=== PATIENT | male | born 1975 | race Caucasian/White ===

== ENCOUNTER 2021-07-05 07:18 | Day surgery (SDC) | payer BC ==
[~2021-07-05 07:18] MED LIST: Midazolam 1 MG/ML 2 ML SDV ONE; Propofol 200 MG/20 ML SDV ONE; fentaNYL 100 MCG/2 ML SDV ONE
[2021-07-05] MEDS ORDERED: Sodium Chloride 0.9% 1,000 ML IV SCH (08:00)
[2021-07-05] MEDS ORDERED: metroNIDAZOLE/Normal Saline 500 MG in Premix Bag 1 BAG IV ONE (08:00)
[2021-07-05] MEDS: Bupivacaine 0.5% 50 ML MDV ONE ×2 (08:24→08:49)
[2021-07-05] MEDS: Lidocaine 1% with EPINEPHrine 1:100,000 50 ML MDV ONE ×2 (08:25→08:49)
[2021-07-05] MEDS ORDERED: Propofol 200 MG/20 ML SDV ONE ×2 (08:55)
[2021-07-05] MEDS ORDERED: fentaNYL 100 MCG/2 ML SDV ONE (09:01)
[2021-07-05] MEDS ORDERED: Ketorolac 30 MG/ML SDV ONE ×2 (09:02→09:15)
[2021-07-05] MEDS ORDERED: Acetaminophen/HYDROcodone 325-5 MG Tab PO ONE (10:30)
[2021-07-05 10:31] VITALS: PULSE 105
[2021-07-05 10:48] VITALS: BP 138/76
--- NOTE | 2021-07-05 11:01 | OR ---
DATE OF PROCEDURE: 07/05/2021 SURGEON: Henry Alvarez MD PROCEDURES: 1. Transversus abdominis plane block bilaterally. 2. Rectus sheath blocks bilaterally. COMPLICATIONS: None. 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 RISKS: Risks, benefits, alternatives, and limitations including, but not limited to infection, bleeding, injury to abdominal structures were explained to the patient and wished to proceed. PROCEDURE IN DETAIL: The patient was placed in supine position. The right transversus plane was identified, 20% of the solution was injected under direct visualization using a 13 megahertz ultrasound probe. This was repeated on the other side, same manner, same fashion, same technique, in the same sequence using the same equipment. Bilateral rectus sheaths were also injected with 20% of the solution respectively also under direct visualization. During these 4 procedures at no time was the peritoneum entered blindly nor entered. No other abnormalities were noted. The patient tolerated the procedure well. Henry Alvarez MD /[id number]
--- NOTE | 2021-07-05 14:25 | OR ---
DATE OF PROCEDURE: 07/05/2021 SURGEON: Henry Alvarez MD PROCEDURE: Open inguinal hernia repair, right, incarcerated, non strangulated. FINDINGS: Incarcerated non strangulated hernia, right side, indirect. COMPLICATIONS: None. DIRECTOR AGENCY & STRATEGIC PARTNERSHIPS: None. ANESTHESIA: MAC. RISKS: Risks, benefits, alternatives, and limitations including, but not limited to infection, bleeding, injury to testicular vessels, resulting in testicular loss, seroma, hematoma, chronic wounds, chronic pain, neuropathies, and other risks not listed here were explained to the patient and he wished to proceed. PROCEDURE IN DETAIL: The patient was placed in supine position. The right groin was prepped and draped. This was marked by the patient preoperatively. A curvilinear incision was made approximately 5 cm in size after anesthetizing with lidocaine. A 15 blade was used to make this incision and electrocautery was used to carry it down to the external oblique aponeurosis. This was then opened with the back of a 15 blade and subsequently with the Metzenbaum scissors. The external oblique aponeurosis was then from the cord structure. The cord structures and associated hernia were surrounded with a Perkins drain. This indirect inguinal hernia was incarcerated, but able to be reduced. No evidence of strangulation or injury was noted. This was reduced back into the abdomen. An extra-large plug and patch system was secured into place using interrupted 0 Vicryl sutures in combination with absorbable tacking sutures. Careful attention was not to tack or suture the ilioinguinal nerve or other associated nerve structures. Once this was completed, the external oblique aponeurosis was closed with running 0 Vicryl suture. The mesh had been tacked and sutured approximately every 5 mm to 1 cm. Deeper layers were irrigated and closed with 3-0 Vicryl. Skin was closed with 4-0 Vicryl. Dermabond was applied. The patient tolerated the procedure well. Henry Alvarez MD /[id number]
== END 2021-07-05 11:05 | disposition home or self-care (01) ==
LOC: JP.SDS 07:18
PROVIDERS: ATTEND Surgery
DX: K40.30 Unilateral inguinal hernia, with obstruction, without gangrene, not specified as recurrent (principal); E78.00 Pure hypercholesterolemia, unspecified; E11.22 Type 2 diabetes mellitus with diabetic chronic kidney disease; I12.9 Hypertensive chronic kidney disease with stage 1 through stage 4 chronic kidney disease, or unspecified chronic kidney disease; N18.30 Chronic kidney disease, stage 3 unspecified; E66.9 Obesity, unspecified; Z68.26 Body mass index [BMI] 26.0-26.9, adult; Z88.0 Allergy status to penicillin; Z88.1 Allergy status to other antibiotic agents; Z87.891 Personal history of nicotine dependence; Z79.899 Other long term (current) drug therapy
CPT/HCPCS: 49507; 82947; A9270; C1781; J0171; J1100; J1885; J2250; J2704; J2795; J3010; J3490; J7030

== ENCOUNTER 2024-10-08 19:50 | Emergency (ER) | payer BC ==
[2024-10-08 20:30] LABS: BASOPHILS ABSOLUTE AUTO 0.09 K/uL (0.00-0.10); BASOPHILS PERCENT AUTO 0.8 % (0.1-1.3); EOSINOPHILS ABSOLUTE AUTO 0.35 K/uL (0.00-0.40); HEMATOCRIT 51.8 % (38.4-49.7); IMMATURE GRAN PERCENT AUTO 0.2 % (0.0-0.7); MEAN CORPUSCULAR HEMOGLOBIN 30.1 pg (31.6-35.5); MEAN CORPUSCULAR HGB CONC 35.1 g/dL (31.6-35.5); MEAN CORPUSCULAR VOLUME 85.6 fL (81.4-99.0); MONOCYTES ABSOLUTE AUTO 0.94 K/uL (0.20-0.90); MONOCYTES PERCENT AUTO 8.1 % (3.3-12.6); NEUTROPHILS ABSOLUTE AUTO 6.76 K/uL (1.0-7.6); NEUTROPHILS PERCENT AUTO 57.9 % (40.0-78.1); PLATELET COUNT,PLT 233 K/uL (130-375); RED BLOOD CELL COUNT 6.05 M/uL (4.14-5.76); WHITE BLOOD CELL COUNT,WBC 11.7 K/uL (3.2-11.0)
[2024-10-08 20:38] LABS: HEMOGLOBIN 18.2 g/dL (12.9-16.9); IMMATURE GRAN ABSOLUTE AUTO 0.02 K/uL (0.00-0.23)
[2024-10-08] MEDS: Albuterol/Ipratropium 3.0-0.5 MG/3 ML Neb Soln NEB ONE (20:42)
[2024-10-08] MEDS: methylPREDNISolone Sodium Succinate 125 MG/2 ML SDV IM ONE (20:43)
[2024-10-08 20:52] LABS: ALANINE AMINOTRANSFERASE,ALT 36 U/L (12-78); ALBUMIN 3.8 g/dL (3.4-5.0); ALKALINE PHOSPHATASE 77 U/L (46-116); ASPARTATE AMNIOTRANSFERASE,AST 15 U/L (15-37); BILIRUBIN TOTAL 0.5 mg/dL (0.2-1.0); BLOOD UREA NITROGEN,BUN 19 mg/dL (7-18); CALCIUM 9.4 mg/dL (8.5-10.1); CARBON DIOXIDE,CO2 28 mmol/L (21-32); CHLORIDE,CL 101 mmol/L (100-108); CREATININE 1.1 mg/dL (0.8-1.3); EST CRCL DRUG DOSING (CG) 86.52 mL/min; ESTIMATED GFR 82 mL/min (>60); GLUCOSE RANDOM 139 mg/dL (74-106); POTASSIUM,K 3.9 mmol/L (3.6-5.2); PROTEIN TOTAL,TP 7.6 g/dL (6.4-8.2); SODIUM,NA 139 mmol/L (140-148)
[2024-10-08 20:53] LABS: ANION GAP 13.9 mmol/L (5.0-14.0)
[2024-10-08] MEDS: Albuterol 0.083% 2.5 MG/3 ML Neb Soln NEB ONE (21:25)
[2024-10-08 21:54] LABS: CORONAVIRUS COVID-19 NAA NEGATIVE (NEGATIVE); INFLUENZA A NAA NEGATIVE (NEGATIVE); INFLUENZA B NAA NEGATIVE (NEGATIVE); RESPIRATORY SYNCYTIAL VIR NAA NEGATIVE (NEGATIVE)
[2024-10-08 22:42] VITALS: BP 113/58; PULSE 113
== END 2024-10-08 22:33 | disposition home or self-care (01) ==
LOC: JP.ED 19:50
DX: J44.1 Chronic obstructive pulmonary disease with (acute) exacerbation (principal); I10 Essential (primary) hypertension; M19.90 Unspecified osteoarthritis, unspecified site; E78.00 Pure hypercholesterolemia, unspecified; E11.9 Type 2 diabetes mellitus without complications; F17.210 Nicotine dependence, cigarettes, uncomplicated; Z88.0 Allergy status to penicillin; Z79.82 Long term (current) use of aspirin; Z79.4 Long term (current) use of insulin; Z79.899 Other long term (current) drug therapy
CPT/HCPCS: 0241U; 36415; 71045; 80053; 85025; 94640; 96372; 99285; J2919; 99284; J7620